=== PATIENT | male | born 1980 | race Caucasian/White ===

== ENCOUNTER 2020-04-14 12:19 | Outpatient (CLI) | payer BC, SELFPAY ==
--- NOTE | 2020-04-14 12:30 | US_ITS ---
WS: [id number] THYROID ULTRASOUND HISTORY: THYROID NODULE, palpable LEFT neck nodule. COMPARISON: None available. Right lobe: 4.8 cm x 1.5 cm x 1.5 cm. Volume: 5.7 cm3. Normal size and echotexture. No significant are dominant nodules are present. Left lobe: 4.8 cm x 1.3 cm x 1.6 cm. Volume: 4.9 cm3. Normal size and echotexture. No significant or dominant nodules are present. Palpable area correspond s to small benign-appearing lymph nodes. Isthmus: 0.4 cm. US/US thyroid [id number] IMPRESSION: Normal thyroid ultrasound.
== END 2020-04-14 12:20 | disposition home or self-care (01) ==
PROVIDERS: PCP Pediatrics; Visit Provider Nurse Practitioner Family
DX: E04.1 Nontoxic single thyroid nodule (principal)
CPT/HCPCS: 76536